=== PATIENT | female | born 1970 | race Caucasian/White ===

== ENCOUNTER 2017-02-06 22:44 | Emergency (ER) | payer SELFPAY ==
[~2017-02-06] VITALS: Ht 165.1 cm; Wt 54.0 kg
[2017-02-06 23:55] LABS: BASOPHILS % (AUTO) 0.4 % (0.0-2.0); EOSINOPHILS # (AUTO) 0.1 K/uL (0.0-0.7); EOSINOPHILS % (AUTO) 1.5 % (0.0-7.0); HEMATOCRIT 30.3 % (37.0-47.0); HEMOGLOBIN 9.2 g/dL (12.0-16.0); LYMPHOCYTES # (AUTO) 1.3 K/uL (0.8-4.8); LYMPHOCYTES % (AUTO) 24.2 % (20.5-51.5); MEAN CORPUSCULAR HEMOGLOBIN 22.1 uug (27.0-31.0); MEAN CORPUSCULAR HGB CONC 30 g/dL (32.0-37.0); MEAN CORPUSCULAR VOLUME 72.5 fL (81.0-99.0); MONOCYTES # (AUTO) 0.8 K/uL (0.1-1.30); MONOCYTES % (AUTO) 14.4 % (0.0-11.0); NEUTROPHILS # (AUTO) 3.3 K/uL (1.8-8.9); NEUTROPHILS % (AUTO) 59.5 % (38.5-71.5); PLATELET COUNT (AUTO) 152 K/uL (150-450); RED BLOOD CELL COUNT(AUTO) 4.18 MIL/uL (4.20-5.40); RED CELL DISTRIBUTION WIDTH 19.2 % (11.5-14.5); WHITE BLOOD COUNT (AUTO) 5.5 K/uL (4.0-11.2)
[2017-02-07 00:01] LABS: ALBUMIN 3.3 g/dL (3.4-5.0); BILIRUBIN,DIRECT 0.2 mg/dL (0.0-0.2); BILIRUBIN,TOTAL 0.6 mg/dL (0.2-1.0); CREATININE 0.7 mg/dL (0.6-1.3); POTASSIUM 3.2 mmol/L (3.5-5.1); TOTAL PROTEIN, SERUM 7.6 g/dL (6.4-8.2)
[2017-02-07 00:04] LABS: ETHANOL < 3 MG/DL (0-0)
[2017-02-07 00:08] LABS: ANISOCYTOSIS 2+; EOSINOPHILS % (MANUAL) 1 % (0-8); HYPOCHROMASIA 2+; LYMPHOCYTES % (MANUAL) 26 % (20-40); MONOCYTES % (MANUAL) 17 % (2-10); NEUTROPHILS % (MANUAL) 56 % (42-75); PLATELET ESTIMATE ADEQUATE
[2017-02-07] MEDS ORDERED: POTASSIUM CHLORIDE 20 MEQ TAB.PRT.SR PO ONE (00:30)
[2017-02-07] MEDS ORDERED: POTASSIUM CHLORIDE 20 MEQ TAB.PRT.SR ONE (00:37)
[2017-02-07] MEDS ORDERED: CHLORDIAZEPOXIDE HCL 25 MG CAPSULE PO ONE (01:00)
[2017-02-07] MEDS ORDERED: CHLORDIAZEPOXIDE HCL 25 MG CAPSULE ONE (01:06)
--- NOTE | 2017-02-07 01:20 | NUR ---
Mike alexander in EDM - 02/07/17 at 0121 by TIMOTHY Patient discharged to home in stable conditon. Written and verbal after care instructions given. Patient verbalizes understanding of instructions.
--- NOTE | 2017-02-07 01:21 | NUR ---
Patient given written and verbal discharge instructions. Patient verbalizes understanding of instructions. Patient is ambulatory with steady gait. Refuses offer of skilled nursing placement. Patient given list of available shelters in surrounding area.
== END 2017-02-07 01:22 | disposition home or self-care (01) ==
LOC: ER 22:47
DX: F10.20 Alcohol dependence, uncomplicated (principal); E87.6 Hypokalemia; D64.9 Anemia, unspecified; I10 Essential (primary) hypertension; F17.200 Nicotine dependence, unspecified, uncomplicated; F12.10 Cannabis abuse, uncomplicated; Z88.8 Allergy status to other drugs, medicaments and biological substances
CPT/HCPCS: 36415; 83690; 84703; 85025; A4663; G6040-TC

== ENCOUNTER 2020-05-29 17:37 | Inpatient (IN) | payer MEDICAID ==
[~2020-05-29] VITALS: Ht 172.7 cm; Wt 54.4 kg
[2020-05-29] MEDS ORDERED: IV NORMAL SALINE 1000 ML BAG IV ONE (17:45)
[2020-05-29] MEDS ORDERED: LORAZEPAM 2 MG/1 ML VIAL IV ONE (17:45)
[2020-05-29] MEDS ORDERED: LORAZEPAM 2 MG/1 ML VIAL ONE (18:03)
--- NOTE | 2020-05-29 18:03 | NUR ---
PATIENT HERE FOR C/O CHEST PAIN. PATIENT ON A CONTINUOUS MONITOR. IV PLACED. NS STARTED. PATIENT AT CT SCAN RIGHT NOW
[2020-05-29 18:21] LABS: BASOPHILS % (AUTO) 1.3 % (0.0-2.0); EOSINOPHILS # (AUTO) 0.1 K/uL (0.0-0.7); EOSINOPHILS % (AUTO) 2.2 % (0.0-7.0); HEMATOCRIT 41.9 % (31.2-41.9); HEMOGLOBIN 13.3 g/dL (10.9-14.3); LYMPHOCYTES % (AUTO) 52.5 % (20.5-51.5); MEAN CORPUSCULAR HEMOGLOBIN 30.5 uug (24.7-32.8); MEAN CORPUSCULAR HGB CONC 32 g/dL (32.3-35.6); MONOCYTES # (AUTO) 0.4 K/uL (2.0-10.0); MONOCYTES % (AUTO) 10.5 % (0.0-11.0); NEUTROPHILS # (AUTO) 1.3 K/uL (1.8-8.9); NEUTROPHILS % (AUTO) 33.5 % (38.5-71.5); PLATELET COUNT (AUTO) 107 K/uL (179-408); RED BLOOD CELL COUNT(AUTO) 4.36 MIL/uL (3.63-4.92); WHITE BLOOD COUNT (AUTO) 3.8 K/uL (3.8-11.8)
[2020-05-29] MEDS ORDERED: LISIN (18:23)
[2020-05-29] MEDS ORDERED: CARDIZEM PO (18:23)
[2020-05-29] MEDS ORDERED: INSU100I35 SQ (18:23)
[2020-05-29] MEDS ORDERED: LISINOPRIL PO (18:23)
[2020-05-29 18:27] LABS: CREATININE 0.6 mg/dL (0.6-1.3); POTASSIUM 3.8 mmol/L (3.5-5.1)
--- NOTE | 2020-05-29 18:37 | NUR ---
called [facility] for panel placement
--- NOTE | 2020-05-29 18:39 | NUR ---
COVID SWAB SENT TO LAB
--- NOTE | 2020-05-29 19:00 | NUR ---
PATIENT AWARE OF PENDING ADMISSION. AWAITING CALL FROM DR ABEL Hwang HANDOFF REPORT GIVEN TO MIKO LEE
--- NOTE | 2020-05-29 19:27 | NUR ---
DR. ROMAN SPEAKING WITH DR ACEVEDO AT THIS TIME.
--- NOTE | 2020-05-29 19:51 | NUR ---
Pt. admitted to TELE , under care of Dr. MILES Belongs List completed.
--- NOTE | 2020-05-29 20:30 | NUR ---
ADMITTED PATIENT IN TELE FLOOR UNDER THE CARE OF DR. ROMAN. PATIENT ALERT ORIENTED, NO CHEST PAIN NO SOB, TELE MONITOR SIN[place] TACHY 112. PATIENT CLAIM DRANK 1 PINT OF ALCOHOL, ASSIST WITH TOILETING RISK FOR FALL. ACCORDING TO ER NURSE PATIENT NON COMPLIANT WITH MEDICATIONS, CALL LIGHT WITHIN REACH.
[2020-05-29 20:38] VITALS: BP 133/101
[2020-05-29] MEDS ORDERED: ONDANSETRON 4 MG/2 ML VIAL IV PRN (21:15)
[2020-05-29] MEDS ORDERED: ACETAMINOPHEN 325 MG TABLET PO PRN (21:15)
[2020-05-29] MEDS ORDERED: MAGNESIUM HYDROXIDE 30 ML LIQUID UDC PO PRN (21:15)
[2020-05-29] MEDS ORDERED: MAG HYDROX/AL HYDROX/SIMETH 30 ML LIQUID UDC PO PRN (21:15)
[2020-05-29] MEDS: LORAZEPAM 2 MG/1 ML VIAL IV PRN (22:31)
--- NOTE | 2020-05-29 22:31 | NUR ---
PATIENT IS HAVING ANXIETY, YELLING AND SCREAMING, REQUEST FOR ATIVAN. PATIENT WAS GIVEN ATIVAN 1MG VIA IV FOR ANXIETY AND ETHOL WITHDRAWAL. PATIENT HAS NO ADVERSE CHANGES NOTED, CONT TO MONITOR.
[2020-05-29] MEDS: POTASSIUM CHLORIDE 20 MEQ in IV 1/2NS 1000 ML 1,000 ML IV PRN (22:39)
[2020-05-30] VITALS: BP 134/98
[2020-05-30 04:00] VITALS: BP_SYST 122; BP_SYST 152; BP_DIAS 106; BP_DIAS 78
--- NOTE | 2020-05-30 04:13 | NUR ---
PATIENT HAS EPISODE OF NAUSEA AND VOMITING, GIVEN ZOFRAN VIA IV, CONT TO MONITOR. PATIENT HAS ELEVATED BP 152/106 MAYBE DUE TO N/V AND ANXIETY, PATIENT HAS NO HEADACHES, NO DIZZINESS ASYMPTOMATIC, WILL CONT TO MONITOR.
[2020-05-30] MEDS: LORAZEPAM 2 MG/1 ML VIAL IV PRN ×3 (05:08→20:12)
--- NOTE | 2020-05-30 05:08 | NUR ---
PATIENT HAS NO FURTHER EPISODE OF NAUSEA AND VOMITING, BUT ANXIETY DUE TO ALCOHOL WITHDRAWAL. PATIENT WAS GIVEN ATIVAN 1MG IV ORDERED, WILL CONTINUE TO MONITOR.
[2020-05-30] MEDS: PANTOPRAZOLE SODIUM 40 MG TABLET.DR PO SCH (06:04)
[2020-05-30 06:54] LABS: THYROID STIMULATING HORMONE 1.514 mIU/mL (0.358-3.740)
--- NOTE | 2020-05-30 06:56 | NUR ---
PATIENT HAS ELEVATED BP 152/107, 150/108, NOTIFY DR ROMAN AWAITING FOR RESPONSE.
--- NOTE | 2020-05-30 06:57 | NUR ---
notify dr. bhandari magnesium level 1, awaiting for response. Endorsed to am JESUS.
[2020-05-30 07:02] LABS: ALANINE AMINOTRANSFERASE 40 U/L (14-59); ALKALINE PHOSPHATASE 117 U/L (50-136); ASPARTATE AMINOTRANSFERASE 204 U/L (15-37); BILIRUBIN,TOTAL 1.4 mg/dL (0.2-1.0); CARBON DIOXIDE 29 mmol/L (21-32); CHLORIDE 101 mmol/L (98-107); CHOLESTEROL 194 mg/dL (<200); CREATININE 0.5 mg/dL (0.6-1.3); GLUCOSE 139 mg/dL (74-106); HDL CHOLESTEROL 116 mg/dL (40-60); PHOSPHOROUS 3.8 mg/dL (2.5-4.9); POTASSIUM 3.5 mmol/L (3.5-5.1); TOTAL PROTEIN, SERUM 7.1 g/dL (6.4-8.2); TRIGLYCERIDES 42 MG/DL (30-150); UREA NITROGEN, BLOOD 9 mg/dL (7-18)
[2020-05-30 07:08] LABS: BASOPHILS % (AUTO) 0.5 % (0.0-2.0); HEMATOCRIT 37.7 % (31.2-41.9); HEMOGLOBIN 12.4 g/dL (10.9-14.3); LYMPHOCYTES # (AUTO) 0.6 K/uL (20.0-40.0); LYMPHOCYTES % (AUTO) 14.9 % (20.5-51.5); MEAN CORPUSCULAR HEMOGLOBIN 31.7 uug (24.7-32.8); MEAN CORPUSCULAR HGB CONC 33 g/dL (32.3-35.6); MONOCYTES # (AUTO) 0.2 K/uL (2.0-10.0); MONOCYTES % (AUTO) 5.9 % (0.0-11.0); NEUTROPHILS % (AUTO) 77.7 % (38.5-71.5); PLATELET COUNT (AUTO) 68 K/uL (179-408); RED BLOOD CELL COUNT(AUTO) 3.93 MIL/uL (3.63-4.92); WHITE BLOOD COUNT (AUTO) 3.8 K/uL (3.8-11.8)
--- NOTE | 2020-05-30 07:15 | NUR ---
AWAKE ALERT AND VERBALLY RESPONSIVE, ABLE TO FOLLOW COMMAND. SR/ST ON MONITOR.
[2020-05-30] MEDS: FOLIC ACID 1 MG TABLET PO SCH (08:01)
[2020-05-30] MEDS: THIAMINE HCL 100 MG TABLET PO SCH (08:01)
[2020-05-30] MEDS: MULTIVITAMINS,THERAPEUTIC TABLET PO SCH (08:02)
[2020-05-30] MEDS: HYDROCODONE/APAP 5-325MG TABLET PO PRN (08:03)
[2020-05-30] MEDS: MAGNESIUM SULFATE/D5W 100 ML IV SCH ×4 (09:21→13:09)
[2020-05-30] MEDS: POTASSIUM CHLORIDE 20 MEQ in IV 1/2NS 1000 ML 1,000 ML IV PRN (09:21)
[2020-05-30 09:36] LABS: *AMPHETAMINE, URINE POSITIVE (NEGATIVE); *BARBITURATE, URINE NEGATIVE (NEGATIVE); *CANNABINOID, URINE NEGATIVE (NEGATIVE); *COCCAINE, URINE NEGATIVE (NEGATIVE); *OPIATE, URINE NEGATIVE (NEGATIVE); *PHENCYCLIDINE SCREEN,URINE NEGATIVE (NEGATIVE)
[2020-05-30 10:13] LABS: BAND % (MANUAL) 1 % (0-10); EOSINOPHILS % (MANUAL) 2 % (0-8); LYMPHOCYTES % (MANUAL) 14 % (20-40); MONOCYTES % (MANUAL) 6 % (2-10); NEUTROPHILS % (MANUAL) 77 % (42-75)
--- NOTE | 2020-05-30 10:17 | NUR ---
SEEN BY DR DURHAM REVIEWED PLAN AF CARE, NOTED LOW MG /REPLACED. CONTINUE PLAN OF CARE
[2020-05-30 12:00] VITALS: BP 129/97
--- NOTE | 2020-05-30 15:34 | NUR ---
MAGNESIUM REPLACEMENT COMPLETED, PATIENT REMAINS STABLE. ST ON MONITOR 117
[2020-05-30 16:00] VITALS: BP 138/99
[2020-05-30 20:00] VITALS: BP 138/96
[2020-05-31] VITALS: BP 130/94
[2020-05-31] MEDS: POTASSIUM CHLORIDE 20 MEQ in IV 1/2NS 1000 ML 1,000 ML IV PRN ×2 (00:46→21:15)
[2020-05-31 04:00] VITALS: BP 124/92
[2020-05-31] MEDS: LORAZEPAM 2 MG/1 ML VIAL IV PRN ×2 (04:53→18:17)
[2020-05-31] MEDS: PANTOPRAZOLE SODIUM 40 MG TABLET.DR PO SCH (06:09)
[2020-05-31 06:39] LABS: BASOPHILS % (AUTO) 0.5 % (0.0-2.0); EOSINOPHILS # (AUTO) 0.1 K/uL (0.0-0.7); EOSINOPHILS % (AUTO) 3.3 % (0.0-7.0); HEMATOCRIT 39.9 % (31.2-41.9); LYMPHOCYTES # (AUTO) 0.8 K/uL (20.0-40.0); LYMPHOCYTES % (AUTO) 25.3 % (20.5-51.5); MEAN CORPUSCULAR HEMOGLOBIN 31.5 uug (24.7-32.8); MEAN CORPUSCULAR HGB CONC 33 g/dL (32.3-35.6); MEAN CORPUSCULAR VOLUME 96.6 fL (75.5-95.3); MONOCYTES # (AUTO) 0.3 K/uL (2.0-10.0); MONOCYTES % (AUTO) 8.1 % (0.0-11.0); NEUTROPHILS # (AUTO) 2.1 K/uL (1.8-8.9); NEUTROPHILS % (AUTO) 62.8 % (38.5-71.5); PLATELET COUNT (AUTO) 64 K/uL (179-408); RED BLOOD CELL COUNT(AUTO) 4.13 MIL/uL (3.63-4.92); WHITE BLOOD COUNT (AUTO) 3.3 K/uL (3.8-11.8)
[2020-05-31 06:46] LABS: CREATININE 0.6 mg/dL (0.6-1.3); MAGNESIUM 1.6 mg/dL (1.8-2.4); POTASSIUM 4.1 mmol/L (3.5-5.1)
--- NOTE | 2020-05-31 06:54 | NUR ---
Patient slept intermittently. No SOB noted. No complaints of pain. ST on tele monitor. All needs attended. Will endorse accordingly
--- NOTE | 2020-05-31 07:40 | NUR ---
Received pt. in bed asleep, easy to wake up. AOx3. Able to follow instructions. lt. hand IV in placed and flushed. No signs of SOB, chest pain at this time. All needs met. Safety and fall prevention in place. bed locked and in low position. Call light in reach. will continue to monitor.
[2020-05-31 08:27] VITALS: BP 144/106
[2020-05-31] MEDS: FOLIC ACID 1 MG TABLET PO SCH (08:53)
[2020-05-31] MEDS: MULTIVITAMINS,THERAPEUTIC TABLET PO SCH (08:54)
[2020-05-31] MEDS: THIAMINE HCL 100 MG TABLET PO SCH (08:54)
[2020-05-31] MEDS: MAGNESIUM SULFATE/D5W 100 ML IV SCH ×2 (11:00→13:00)
[2020-05-31 11:19] VITALS: BP 142/102
[2020-05-31 15:07] VITALS: BP 130/94
--- NOTE | 2020-05-31 18:24 | NUR ---
Pt. in bed asleep, easy to wake up. AOx3. Able to follow instructions. No signs of distress throughout shift. All needs met. Safety and fall prevention in place. bed locked and in low position. Call light in reach. will report to oncoming shift.
[2020-05-31 20:19] VITALS: BP 124/89
[2020-05-31] MEDS ORDERED: METOPROLOL TARTRATE 5 MG/5 ML VIAL IVP ONE (20:45)
--- NOTE | 2020-05-31 20:45 | NUR ---
dr. hou contacted for patients heart from [facility] from 120s to 140x. orders received for metoprolol tartrate 5mg IVP x1 Addendum: 05/31/20 at 2215 by MOMO WILDER RN correction: 140s not 140x
[2020-06-01 00:12] VITALS: BP 125/85
[2020-06-01] MEDS: LORAZEPAM 2 MG/1 ML VIAL IV PRN ×5 (01:41→22:02)
[2020-06-01 04:24] VITALS: BP 132/58
[2020-06-01] MEDS: PANTOPRAZOLE SODIUM 40 MG TABLET.DR PO SCH (06:09)
[2020-06-01 08:00] VITALS: BP 122/92
--- NOTE | 2020-06-01 08:00 | NUR ---
Received pt in bed awake, anxious and kept asking for Ativan. On RA with no SOB or distress noted. On telemetry, endorsed by PM shift nurse that she was ST last night and metoprolol was given. Dr. Min made aware. IV on left FA 22g flushed and patent running 1/2 NS 20mEq KCL and IV left hand 18g flushed and patent but pt refused to have it removed. Slight tremor of upper extremities. Call light within reach. Bed locked in lowest position with siderails 2x up. Will monitor
[2020-06-01] MEDS: FOLIC ACID 1 MG TABLET PO SCH (08:57)
[2020-06-01] MEDS: THIAMINE HCL 100 MG TABLET PO SCH (08:57)
[2020-06-01] MEDS: MULTIVITAMINS,THERAPEUTIC TABLET PO SCH (08:57)
[2020-06-01 09:20] LABS: BASOPHILS % (AUTO) 0.4 % (0.0-2.0); EOSINOPHILS # (AUTO) 0.1 K/uL (0.0-0.7); EOSINOPHILS % (AUTO) 3.9 % (0.0-7.0); HEMATOCRIT 40.6 % (31.2-41.9); LYMPHOCYTES # (AUTO) 1.1 K/uL (20.0-40.0); LYMPHOCYTES % (AUTO) 30.2 % (20.5-51.5); MEAN CORPUSCULAR HEMOGLOBIN 31.3 uug (24.7-32.8); MEAN CORPUSCULAR HGB CONC 32 g/dL (32.3-35.6); MEAN CORPUSCULAR VOLUME 97.3 fL (75.5-95.3); MONOCYTES # (AUTO) 0.4 K/uL (2.0-10.0); MONOCYTES % (AUTO) 10.1 % (0.0-11.0); NEUTROPHILS # (AUTO) 2.1 K/uL (1.8-8.9); NEUTROPHILS % (AUTO) 55.4 % (38.5-71.5); PLATELET COUNT (AUTO) 73 K/uL (179-408); RED BLOOD CELL COUNT(AUTO) 4.17 MIL/uL (3.63-4.92); WHITE BLOOD COUNT (AUTO) 3.7 K/uL (3.8-11.8)
[2020-06-01 09:23] LABS: CREATININE 0.7 mg/dL (0.6-1.3); MAGNESIUM 1.4 mg/dL (1.8-2.4); POTASSIUM 4.3 mmol/L (3.5-5.1)
[2020-06-01] MEDS: POTASSIUM CHLORIDE 20 MEQ in IV 1/2NS 1000 ML 1,000 ML IV PRN ×2 (10:13→22:02)
[2020-06-01 11:29] VITALS: BP 139/95
--- NOTE | 2020-06-01 14:30 | NUR ---
Pt getting very anxious and agitated, wanted to leave. Explained to her that Dr. Min needs her to stay, verbalized understanding. Stated that her home address is [address], [place]. Jamil KAM informed
[2020-06-01 16:21] VITALS: BP 113/96
--- NOTE | 2020-06-01 19:20 | NUR ---
Received patient lying in bed. AAOx4. In no acute distress. Denies any pain or SOB. Slightly anxious, wanting to leave AMA, but able to convince patient to stay. Needs assessed and attended to. Sinus tachy on tele at 126/min. Denies any CP. IV site on left hand and left FA intact and patent. IVF infusing. Droplet and contact precaution observed. Safety measure initiated and call randall within reached.
[2020-06-01 20:18] VITALS: BP 132/63
[2020-06-02 00:04] VITALS: BP 119/59
[2020-06-02] MEDS: LORAZEPAM 2 MG/1 ML VIAL IV PRN ×5 (03:02→20:52)
[2020-06-02 04:22] VITALS: BP 125/89
[2020-06-02] MEDS: PANTOPRAZOLE SODIUM 40 MG TABLET.DR PO SCH (06:04)
--- NOTE | 2020-06-02 06:21 | NUR ---
AAOx4. In no acute distress. Denies any pain or SOB. Ativan PRN given for anxiety/alcohol withdrawal and effective. Needs attended to and met. Sinus tachy on tele at 112/min. IV site on left hand intact and left FA IV site dislodged. IVF infusing. Droplet and contact precaution maintained. Safety measure maintained and call randall within reached.
[2020-06-02 06:39] LABS: *URINE HCG, QUAL NEGATIVE (NEGATIVE)
[2020-06-02] MEDS: FOLIC ACID 1 MG TABLET PO SCH (08:08)
[2020-06-02] MEDS: MULTIVITAMINS,THERAPEUTIC TABLET PO SCH (08:08)
[2020-06-02] MEDS: THIAMINE HCL 100 MG TABLET PO SCH (08:08)
--- NOTE | 2020-06-02 08:15 | NUR ---
received pt. resting in bed alert oriented x4. pt. denies pain/ discomfort at this time. pt. denies sob/ difficulty breathing. pt on room air. IV intact in L hand 20 gauge intact patent running prescribed fluid. pt. requests PRN ativan for agitation. safety measures in place. call light within reach. will continue to monitor pt.
--- NOTE | 2020-06-02 11:14 | NUR ---
Clinical Social Work Note This patient was referred for social work consult by Corinne Baez, Director for evaluation for homelessness. Patient was interviewed remotely due to PUI status. Patient is alert and oriented x3. She is upset that she is in the hospital and repeated " I want to go home and take a bath in my own bathtub". She said she may AMA. Patient denies a psychiatric history but admits to polysubstance abuse. 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 Patient is not homeless per her report. She lives at [address] [place] [address], [address], [place] [address]. Patient's COVID result is negative. She denies any psyh Addendum: 06/02/20 at 1133 by ALE BUSTAMANTE She denies any psychiatric history and is not suicidal. Patient will return home once a discharge order is given. Discussed with Magalie Licea RN.
[2020-06-02 11:46] VITALS: BP 122/84
--- NOTE | 2020-06-02 11:46 | NUR ---
Homeless Patient Protocol and Note Patient provided [facility] address and lives there. In view of [address]2 regulations and hotel being no fixed abode, patient will need to sign homeless waiver upon discharge and homeless checklist will be completed by discharging RN. Patient will also be given homeless resources by this social security benefits interviewer.
--- NOTE | 2020-06-02 11:53 | NUR ---
received results pt.'s COVID test is negative. Informed Dr. Min on results.
[2020-06-02 15:13] VITALS: BP 118/76
[2020-06-02 15:45] LABS: BASOPHILS % (AUTO) 0.6 % (0.0-2.0); EOSINOPHILS # (AUTO) 0.1 K/uL (0.0-0.7); EOSINOPHILS % (AUTO) 1.7 % (0.0-7.0); HEMATOCRIT 40.3 % (31.2-41.9); LYMPHOCYTES # (AUTO) 1.3 K/uL (20.0-40.0); LYMPHOCYTES % (AUTO) 31.2 % (20.5-51.5); MEAN CORPUSCULAR HEMOGLOBIN 31.3 uug (24.7-32.8); MEAN CORPUSCULAR HGB CONC 32 g/dL (32.3-35.6); MEAN CORPUSCULAR VOLUME 97.1 fL (75.5-95.3); MONOCYTES # (AUTO) 0.5 K/uL (2.0-10.0); MONOCYTES % (AUTO) 11.2 % (0.0-11.0); NEUTROPHILS # (AUTO) 2.3 K/uL (1.8-8.9); NEUTROPHILS % (AUTO) 55.3 % (38.5-71.5); PLATELET COUNT (AUTO) 88 K/uL (179-408); RED BLOOD CELL COUNT(AUTO) 4.15 MIL/uL (3.63-4.92); WHITE BLOOD COUNT (AUTO) 4.2 K/uL (3.8-11.8)
[2020-06-02 15:48] LABS: CREATININE 0.6 mg/dL (0.6-1.3); POTASSIUM 4.3 mmol/L (3.5-5.1)
[2020-06-02] MEDS: POTASSIUM CHLORIDE 20 MEQ in IV 1/2NS 1000 ML 1,000 ML IV PRN (15:55)
[2020-06-02 20:24] VITALS: BP 117/84
[2020-06-03] VITALS: BP 133/90
[2020-06-03 04:08] VITALS: BP 130/86
[2020-06-03] MEDS: POTASSIUM CHLORIDE 20 MEQ in IV 1/2NS 1000 ML 1,000 ML IV PRN (04:35)
[2020-06-03] MEDS: LORAZEPAM 2 MG/1 ML VIAL IV PRN ×2 (04:49→09:26)
--- NOTE | 2020-06-03 05:04 | NUR ---
PATIENT AAOX2-3 AND FORGETFUL. NO S/S OF ACUTE DISTRESS NOTED. V/S STABLE. ST ON TELE MONITOR. PIV INTACT AND PATENT. ATIVAN ADMINISTERED X2. TOLERATED WELL. SAFETY PRECAUTIONS IN PLACE. WILL CONTINUE TO MONITOR AND ASSESS.
[2020-06-03] MEDS: PANTOPRAZOLE SODIUM 40 MG TABLET.DR PO SCH (06:15)
[2020-06-03 06:45] LABS: BASOPHILS % (AUTO) 0.4 % (0.0-2.0); EOSINOPHILS # (AUTO) 0.1 K/uL (0.0-0.7); EOSINOPHILS % (AUTO) 2.4 % (0.0-7.0); HEMATOCRIT 39.3 % (31.2-41.9); HEMOGLOBIN 12.8 g/dL (10.9-14.3); LYMPHOCYTES # (AUTO) 1.3 K/uL (20.0-40.0); LYMPHOCYTES % (AUTO) 30.3 % (20.5-51.5); MEAN CORPUSCULAR HEMOGLOBIN 31.5 uug (24.7-32.8); MEAN CORPUSCULAR HGB CONC 33 g/dL (32.3-35.6); MEAN CORPUSCULAR VOLUME 96.7 fL (75.5-95.3); MONOCYTES # (AUTO) 0.7 K/uL (2.0-10.0); MONOCYTES % (AUTO) 14.9 % (0.0-11.0); NEUTROPHILS # (AUTO) 2.3 K/uL (1.8-8.9); PLATELET COUNT (AUTO) 96 K/uL (179-408); RED BLOOD CELL COUNT(AUTO) 4.06 MIL/uL (3.63-4.92); WHITE BLOOD COUNT (AUTO) 4.4 K/uL (3.8-11.8)
[2020-06-03 06:57] LABS: CREATININE 0.7 mg/dL (0.6-1.3); POTASSIUM 4.5 mmol/L (3.5-5.1)
[2020-06-03 06:59] LABS: MAGNESIUM 1.2 mg/dL (1.8-2.4)
--- NOTE | 2020-06-03 07:20 | NUR ---
RESTING MOST OF THE TIME BUT ASKING TO GO HOME. WILL FOLLOW-UP WITH MD. NO SS OF DISTRESS MEDICATED FOR GENERALIZED PAIN. OBSERVED
[2020-06-03] MEDS: HYDROCODONE/APAP 5-325MG TABLET PO PRN (08:30)
[2020-06-03] MEDS: MULTIVITAMINS,THERAPEUTIC TABLET PO SCH (08:31)
[2020-06-03] MEDS: THIAMINE HCL 100 MG TABLET PO SCH (08:31)
[2020-06-03] MEDS: FOLIC ACID 1 MG TABLET PO SCH (08:31)
[2020-06-03] MEDS: MAGNESIUM SULFATE/D5W 100 ML IV SCH ×3 (08:33→10:30)
--- NOTE | 2020-06-03 09:07 | NUR ---
SEEN BY DR DURHAM SPOKE WITH PATIENT AND NOTED LABS. DISCUSSED PALN OF CARE. DC PLAN INITIATED
--- NOTE | 2020-06-03 11:10 | NUR ---
HOME AMA FOREST ENGINEER AND NOTIFIED
== END 2020-06-03 11:10 | disposition left against medical advice (07) | DRG 770 ==
LOC: ER 17:37 → TELE3 19:54
PROVIDERS: ADMIT Family Medicine; ATTEND Family Medicine
DX: F10.239 Alcohol dependence with withdrawal, unspecified (principal); R07.89 Other chest pain; E86.9 Volume depletion, unspecified; D69.6 Thrombocytopenia, unspecified; Z68.1 Body mass index [BMI] 19.9 or less, adult; E83.42 Hypomagnesemia; F17.210 Nicotine dependence, cigarettes, uncomplicated; I10 Essential (primary) hypertension; I25.10 Atherosclerotic heart disease of native coronary artery without angina pectoris; Z79.4 Long term (current) use of insulin; E11.65 Type 2 diabetes mellitus with hyperglycemia; I05.0 Rheumatic mitral stenosis; Y90.9 Presence of alcohol in blood, level not specified; F12.90 Cannabis use, unspecified, uncomplicated; I25.2 Old myocardial infarction; E44.1 Mild protein-calorie malnutrition
CPT/HCPCS: 36415; 70030-TC; 70450; 71045; 80307; 83735; 84100; 84443; 84703; 85025; 85730; 93005; A4663; G0378; J2060; J2405; J3475; J3480; J3490; J7030; J7050; U0003-CS

== ENCOUNTER → 2022-06-13 | Emergency (ER) | payer MEDICAID, OTHER ==
[~2022-06-13] MED LIST: CARDIZEM PO; INSU100I35 SQ; LISIN; LISINOPRIL PO
--- NOTE | 2022-06-14 01:50 | NUR ---
pt has left without being triaged.
== END | disposition left against medical advice (07) ==
LOC: ER 19:50
DX: Z53.21 Procedure and treatment not carried out due to patient leaving prior to being seen by health care provider (principal)

== ENCOUNTER 2024-04-16 19:01 | Emergency (ER) | payer OTHER ==
[~2024-04-16] VITALS: Ht 170.2 cm; Wt 52.2 kg
[2024-04-16 22:46] LABS: HEMOGLOBIN 11.8 g/dL (10.9-14.3)
[2024-04-16 22:53] LABS: BASOPHILS % (AUTO) 0.8 % (0.0-2.0); DIFFERENTIAL COMMENT 0; EOSINOPHILS # (AUTO) 0.1 K/uL (0.0-0.7); EOSINOPHILS % (AUTO) 2.5 % (0.0-7.0); HEMATOCRIT 34.3 % (31.2-41.9); LYMPHOCYTES # (AUTO) 3.1 K/uL (0.8-4.8); LYMPHOCYTES % (AUTO) 53.6 % (20.5-51.5); MEAN CORPUSCULAR HEMOGLOBIN 33.9 uug (24.7-32.8); MEAN CORPUSCULAR HGB CONC 34 g/dL (32.3-35.6); MEAN CORPUSCULAR VOLUME 98.5 fL (75.5-95.3); MONOCYTES # (AUTO) 0.5 K/uL (0.1-1.30); MONOCYTES % (AUTO) 7.9 % (0.0-11.0); NEUTROPHILS % (AUTO) 35.2 % (38.5-71.5); PLATELET COUNT (AUTO) 94 K/uL (179-408); RED BLOOD CELL COUNT(AUTO) 3.48 MIL/uL (3.63-4.92); RED CELL DISTRIBUTION WIDTH 15.3 % (12.3-17.7); WHITE BLOOD COUNT (AUTO) 5.7 K/uL (3.8-11.8)
[2024-04-16 22:55] LABS: CALCIUM 8.3 mg/dL (8.5-10.1); CARBON DIOXIDE 24 mmol/L (21-32); CHLORIDE 102 mmol/L (98-107); CREATININE 0.6 mg/dL (0.6-1.3); GLUCOSE 100 mg/dL (74-106); POTASSIUM 3.6 mmol/L (3.5-5.1); SODIUM SERUM 141 mmol/L (136-145); UREA NITROGEN, BLOOD 16 mg/dL (7-18)
[2024-04-16] MEDS: IV NORMAL SALINE 1000 ML BAG IV ONE (23:02)
[2024-04-16] MEDS: FAMOTIDINE. 20 MG/2 ML VIAL IV ONE (23:02)
[2024-04-16 23:03] LABS: ALANINE AMINOTRANSFERASE 25 U/L (14-59); ALBUMIN 3.5 g/dL (3.4-5.0); ALKALINE PHOSPHATASE 106 U/L (50-136); ASPARTATE AMINOTRANSFERASE 64 U/L (15-37); BILIRUBIN,DIRECT 0.3 mg/dL (0.0-0.2); BILIRUBIN,TOTAL 0.7 mg/dL (0.2-1.0); LIPASE < 10 U/L (16-77); TOTAL PROTEIN, SERUM 7.3 g/dL (6.4-8.2)
[2024-04-16] MEDS: KETOROLAC TROMETHAMINE 15 MG INJ IVP ONE (23:04)
[2024-04-17 01:57] LABS: *BILIRUBIN,URIN NEGATIVE (NEGATIVE); *BLOOD, URINE NEGATIVE (NEGATIVE); *CLARITY,URINE CLEAR (CLEAR); *COLOR,URINE YELLOW (YELLOW); *KETONES,URINE NEGATIVE (NEGATIVE); *PROTEIN,URINE NEGATIVE (NEGATIVE); LEUKOCYTE ESTERASE ,URINE 3+ (NEGATIVE); NITRITE, URINE NEGATIVE (NEGATIVE); PH,URINE 6.5 (5.0-8.0); UGLUCOSE NEGATIVE (NEGATIVE)
[2024-04-17 02:26] LABS: EOSINOPHILS % (MANUAL) 2 % (0-8); LYMPHOCYTES % (MANUAL) 53 % (20-40); MONOCYTES % (MANUAL) 6 % (2-10); NEUTROPHILS % (MANUAL) 39 % (42-75)
[2024-04-17 02:27] LABS: ANISOCYTOSIS 1+; PLATELET ESTIMATE MODERATELY DECREASED
[2024-04-17 02:40] LABS: RBC,URINE NONE SEEN /HPF (0-3)
[2024-04-17 02:41] LABS: BACTERIA,URINE FEW /HPF (NONE SEEN); SQUAMOUS EPITHELIAL CELL,UR MODERATE /HPF (NONE SEEN)
[2024-04-17 02:42] LABS: CALCIUM OXALATE CRYSTALS,UR RARE /HPF (NONE SEEN)
[2024-04-17] MEDS: CEphaleXIN 500 MG CAPSULE PO ONE (03:19)
[2024-04-17] MEDS ORDERED: CEphaleXIN 500 MG CAPSULE ONE (03:19)
[2024-04-17] MEDS ORDERED: FAMO-132 PO (04:46)
[2024-04-17] MEDS ORDERED: CARB200T PO (04:46)
[2024-04-17] MEDS ORDERED: LORAZEPAM 1 MG TABLET ONE (04:48)
[2024-04-17] MEDS: LORAZEPAM 0.5 MG TABLET PO ONE (04:49)
[2024-04-17] MEDS: ONDANSETRON 4 MG/2 ML VIAL IV ONE ×2 (05:17→08:28)
[2024-04-17] MEDS ORDERED: LORAZEPAM 2 MG/1 ML VIAL ONE ×2 (08:09→13:06)
[2024-04-17] MEDS ORDERED: ONDANSETRON 4 MG/2 ML VIAL ONE (08:10)
[2024-04-17] MEDS: LORAZEPAM 2 MG/1 ML VIAL IV ONE ×2 (08:27→13:10)
[2024-04-17 13:45] VITALS: O2SAT 97
== END 2024-04-17 13:51 | disposition short-term general hospital (02) ==
LOC: ER 19:02
DX: R10.13 Epigastric pain (principal); R10.11 Right upper quadrant pain; F10.129 Alcohol abuse with intoxication, unspecified; F10.139 Alcohol abuse with withdrawal, unspecified; K29.20 Alcoholic gastritis without bleeding; I10 Essential (primary) hypertension; F17.210 Nicotine dependence, cigarettes, uncomplicated; Z79.899 Other long term (current) drug therapy; Z88.5 Allergy status to narcotic agent; Y90.0 Blood alcohol level of less than 20 mg/100 ml
CPT/HCPCS: 80076; 80048; 83690; 85007; 85025; 84484; 36415 ×2; 71045; 99285; 96361; 96374; 96375 ×2; 81001; 96376; 80320; J3490; J1885; J7040; J2060 ×2; J2405 ×2; 70030-TC; A4606; A4663; G0480